=== PATIENT | female | born 1985 | race African-American/Black ===

== ENCOUNTER 2017-07-16 02:50 | Inpatient (IN) | payer OTHER ==
[~2017-07-16] VITALS: Ht 165.1 cm; Wt 159.7 kg
[~2017-07-16 02:50] MED LIST: AMITRIPTYLINE H10 M2 PO; FISH OIL 1,0001 EAC2 PO; FOLIC ACID0.8 M1 PO; IMITREX50 M1 PO; MERIBIN5 M1 PO; PROVENTIL HFA6.7 GM INH; SYMBICORT 16010.2 GM INH
--- NOTE | 2017-07-16 12:34 | Admission Core Measures ---
Acute Coronary Syndrome (CM) ACS Core Measures Acute Coronary Syndrome Diagnosis No Congestive Heart Failure (NEW) CHF Core Measures Congestive Heart Failure Diagnosis No Cerebrovascular Accident (NEW) CVA Core Measures CVA/TIA Diagnosis No Venous Thromboembolism VTE Core Kelsie (View Protocol) VTE Risk Factors Surgery No Mechanical VTE Prophylaxis d/t N/A MechProphylax Ordered No VTE Pharm Prophylaxis d/t NA PharmProphylax ordered Problem List As ranked by this Provider includes Assessment & Plan 1. S/P laparoscopic sleeve gastrectomy 2. Asthma 3. Morbid obesity HOME MEDS Home Med List Albuterol Sulfate (Proventil Hfa) 90 MCG HFA.AER.AD 2 PUF INH PRN ASTHMA ( Reported) Amitriptyline HCl 10 MG TABLET 1 TAB PO QPM SLEEP/MIGRAINES (Reported) Biotin (Meribin) (Unknown Strength) CAPSULE (Unknown Dose) PO DAILY SUPPLEMENT (Reported) Budesonide/Formoterol Fumarate (Symbicort 160-4.5 Mcg Inhaler) 160 MCG-4.5 MCG/ ACTUATION HFA.AER.AD 2 PUF INH PRN ASTHMA (Reported) Folic Acid (Unknown Strength) CAPSULE (Unknown Dose) PO DAILY SUPPLEMENT ( Reported) Water View-3/Dha/Epa/Fish Oil (Fish Oil 1,000 MG Softgel) (Unknown Strength) CAPSULE (Unknown Dose) PO DAILY SUPPLEMENT (Reported) Sumatriptan Succinate (Imitrex) 50 MG TABLET 1 TAB PO AD PRN MIGRAINES ( Reported)
--- NOTE | 2017-07-16 13:51 | Operative Report ---
Operative/Inv Procedure Report Surgery Date: 07/16/17 Name of Procedure: Laparoscopic Sleeve Gastrectomy Pre-Operative Diagnosis: Morbid Obesity BMI 59, VIMAL Post-Operative Diagnosis: Same Estimated Blood Loss: less than 50ml Surgeon/Cellular Biologist: Jag Lanza DO Anesthesia: general endotracheal tube IV Fluids: 1200 cc Drains: None Specimens: Stomach Complications: None Condition: Stable Operative Indication: This is a 31-year-old female who presented to the office for workup for bariatric surgery. After appropriate workup was completed I discussed with the patient the band, the sleeve, and the gastric bypass. The patient chose to undergo a sleeve gastrectomy. All risks including but not limited to bleeding, infection, leak, stricture, injury to surrounding bowel/esophagus/stomach/liver/ spleen, long-term reflux, DVT/PE, and mortality of 06/999 patients were discussed in detail. The patient understood everything and decided to proceed. Operative/Procedure Note Note: The patient was brought to the operating room and placed on the operating room table in supine position. Venodyne stockings were placed and adequate general endotracheal anesthesia was obtained. The patient was prepped and draped in standard surgical fashion. Began the procedure by making a 2 cm transverse incision supraumbilically and slightly to the left of the midline. Then using a 12 mm clear Visiport and a 10 mm 0 laparoscope, the abdominal cavity was accessed. Great care was taken to go through the anterior rectus sheath, the posterior rectus sheath, and through the peritoneum. Once we entered the peritoneum the abdominal cavity was insufflated to 15 mmHg. Upon initial examination no obvious gross pathology was seen. Accessory trocars were placed, 5 mm in the epigastrium for the [place] liver retractor. The retractor was inserted and the liver was retracted anteriorly exposing the hiatus, no hiatal hernia was seen. 5 mm ports were placed in the right and left upper quadrant, a 5 mm left lateral port, and a 15 mm right lateral port. Began the procedure by mobilizing the greater curvature of the stomach approximately 7 cm from the pylorus. Once the retrogastric space was reached the whole greater curvature was mobilized maintaining hemostasis using Harmonic scalpel. Full hiatal dissection was performed, no hiatal hernia was seen. Posterior adhesions were taken down using Harmonic scalpel as well. Once the stomach was adequately mobilized a 38 [place] bougie was inserted and placed along the lesser curvature of the stomach. Once the bougie was in the appropriate position we began creating our sleeve, two 60 mm black staple loads with seamguard followed by three 60 mm purple staple loads with seamguard as well. Great care was taken to leave ample room at the incisura angularis, to prevent any twisting or kinking of the sleeve, to stay lateral to the esophagogastric fat pad, and to do a full fundal excision. At the completion of the staple line the staple line was examined, it appeared intact and no obvious bleeding was noted. The bougie was removed, the sleeve was lying nicely without any twisting or kinking. The resected stomach was removed through the right lateral port site. The port and the left upper quadrant were irrigated until clear. All ports were removed under direct visualization no obvious bleeding was noted. The 15 mm port site fascia was closed using 0 Vicryl suture. The skin was closed using 4-0 Monocryl. Steri-Strips and dressings were placed. The patient was successfully extubated and transferred to the recovery room in stable condition. The patient tolerated the procedure well with no complications. Findings: No hiatal hernia, 38 Fr Bougie CC: Codey LYN,Armando
[2017-07-16 16:30] VITALS: BP 128/72
--- NOTE | 2017-07-16 17:11 | PN- Bariatrics ---
Subjective Subjective: POST-OP NOTE Reports ongoing nausea after receiving zofran, tigan, and decadron. Reportedly vomited a few times dark-bilious fluid. Shes currently sleepy, and seems comfortable. Denies dizziness. No shortness of breath. No chest pains. She has her cpap with her from home. Objective Vital Signs and I&Os pacu flowsheet reviewed. O2 sat checked while examining, which showed she is 99% on room air. due to void between 1999 and 2199 Physical Exam: General - alert & oriented. sleepy but arousable. answering questions appropriately. comfortable. Lungs - clear bilaterally. no w/r/r. Cardiac - s1s2. reg. Abdomen - obese. dressings stained but intact. no drains. expected grace- incisional tenderness. Extremities - warm bilaterally. no c/c/e. calves soft and nontender b/l. Current Medications: Current Medications Sig/Alyssa Start time Last Medication Dose Route Stop Time Status Admin Acetaminophen 1,000 MG .STK-MED ONE 07/16 0657 DC IV 07/16 0658 Albuterol Sulfate 2 PUF Q4 PRN 07/16 1230 AC INH Amitriptyline HCl 10 MG AT BEDTIME 07/16 2200 AC PO Budesonide/ 2 PUF BID 07/16 2200 AC Formoterol Fumarate INH Cefazolin Sodium 3,000 MG IQ8 07/16 2000 CAN IV 07/17 0801 Cefazolin Sodium 3,000 MG Q8H 07/16 2000 AC Sodium Chloride 100 ML IV 07/17 0429 Cefazolin Sodium 3,000 MG ONCE 07/16 0000 DC IV 07/16 2359 Dexamethasone 8 MG ONCE PRN 07/16 1630 AC IV PUSH Dextrose/Lactated 1,000 ML Q8H 07/16 1630 AC 07/16 Ringer's IV 1658 Diphenhydramine HCl 50 MG ONCE ONE 07/16 1645 CAN IV 07/16 1646 Fentanyl Citrate 100 MCG .STK-MED ONE 07/16 0657 DC IM 07/16 0658 Heparin Sodium 5,000 UNIT Q8 07/16 2200 AC (Porcine) SC Heparin Sodium 0 .STK-MED ONE 07/16 1022 DC (Porcine) .ROUTE Heparin Sodium 5,000 UNIT ONCE 07/16 0000 DC (Porcine) IV 07/16 2359 Hydrocodone Bitart/ 15 ML Q6P PRN 07/16 1630 AC Acetaminophen PO Hydromorphone HCl 1 MG Q4P PRN 07/16 1630 AC IV Midazolam HCl 2 MG .STK-MED ONE 07/16 0657 DC IM 07/16 0658 Ondansetron HCl 4 MG Q6P PRN 07/16 1630 AC IV Pantoprazole Sodium 40 MG DAILY 07/17 1000 AC IV Scopolamine HBr 0 .STK-MED ONE 07/16 1206 DC TOP Simethicone 40 MG Q6P PRN 07/16 1630 AC PO Results Last 48 Hours of Labs: Laboratory Tests 07/16 0936 Urines Urine Test NEGATIVE Assessment/Plan Assessment/Plan This 31 year old female with hx morbid obesity (bmi 59), hx greer (with cpap from home at bedside), now POD#0 s/p laparoscopic sleeve gastrectomy stage 1 diet as tolerated npo after midnight for upper gi study in am grace-operative ancef x 2 TRC ordered. spoke with respiratory therapist to assist with placing cpap pain medication as ordered due to void this evening protonix - gi ppx hep sc - dvt ppx. lovenox teaching for home anti-emetics as needed for nausea oob/ambulation when more awake d/w Core Measures Venous Thromboembolism VTE Risk Factors Surgery No Mechanical VTE Prophylaxis d/t N/A MechProphylax Ordered No VTE Pharm Prophylaxis d/t NA PharmProphylax ordered
--- NOTE | 2017-07-16 17:25 | Patient Discharge Instructions ---
Discharge Instructions General Discharge Information You were seen/treated for: Morbid Obesity (BMI 59), VIMAL You had these procedures: Surgery Date: 07/16/17 Name of Procedure: Laparoscopic Sleeve Gastrectomy Watch for these problems: fever>101.3, increased pain, redness/swelling/drainage, dizziness, shortness of breath, chest pains No bath, but you may shower: Yes Other wound care: ok to remove outer dressings. leave white steri strips in place. keep incisions clean & dry. Diet Continue normal diet: Yes Recommended Diet: Bariatric Activity Full Activity/No Limits: No Activity Self Limited: Yes Pounds, do NOT lift more than: 10 Other activity limits: no heavy lifting >10 lbs. no strenuous activity. Additional ACTIVITY Info: walk frequently Acute Coronary Syndrome Inclusion Criteria At DC or during hospital stay patient has or had the following: ACS DIAGNOSIS No Discharge Core Measures Meds if any: Prescribed or Continued at Discharge Meds if any: NOT Prescribed or Continued at Discharge Congestive Heart Failure Inclusion Criteria At DC or during hospital stay patient has or had the following: CHF DIAGNOSIS No Discharge Core Measures Meds if any: Prescribed or Continued at Discharge Meds if any: NOT Prescribed or Continued at Discharge Cerebrovascular accident Inclusion Criteria At DC or during hospital stay patient has or had the following: CVA/TIA Diagnosis No Discharge Core Measures Meds if any: Prescribed or Continued at Discharge Meds if any: NOT Prescribed or Continued at Discharge Venous thromboembolism Inclusion Criteria VTE Diagnosis No VTE Type NONE VTE Confirmed by (Test) NONE Discharge Core Measures - Per Current guidelines, there needs to be overlap - treatment for the first 5 days of Warfarin therapy. - If discharged on Warfarin prior to 5 days of - overlap therapy, the patient will need to be - assessed for post discharge needs including - *Post discharge parental anticoagulation - *Warfarin and/or parental anticoagulation education - *Follow up date to check INR post discharge At least 5 days overlap therapy as Inpatient No Meds if any: Prescribed or Continued at Discharge Note: Overlap Therapy is Warfarin and Anticoagulant Meds if any: NOT Prescribed or Continued at Discharge
[2017-07-16] MEDS ORDERED: PROTONIX40 M3 PO (17:27)
[2017-07-16] MEDS ORDERED: LOVENOX40 MG/0.1 SC (17:27)
[2017-07-16] MEDS ORDERED: HYCET 7.5 MG-3473 ML PO (17:27)
--- NOTE | 2017-07-16 17:32 | Surg Short-stay <48hrs Dis Sum ---
Visit Information Visit Dates Admission Date: 07/16/17 Discharge Date: 07/18/17 Surgical Short Stay DC Summary Admission Diagnosis: morbid obesity (BMI 59), VIMAL Final Diagnosis: same as above, s/p Surgery Date: 07/16/17 Name of Procedure: Laparoscopic Sleeve Gastrectomy Procedure(s): Surgery Date: 07/16/17 Name of Procedure: Laparoscopic Sleeve Gastrectomy Summary/Significant Findings: Electively scheduled laparoscopic sleeve gastrectomy on 07/16/17 by , for history of morbid obesity (BMI 59), and VIMAL. She was started on a stage 1 bariatric diet post-operatively, and initially required several medications for post-op nausea/vomiting. An upper gi study was done POD#1 to rule out leak and obstruction. She brought her cpap machine from home for continued maintenance of her known sleep apnea. Lovenox teaching was done prior to her discharge to home, to continue for one week at home. Condition at Discharge: stable Discharge Disposition: home or self care Discharge instructions provided to patient/family: Yes Post discharge follow-up plan: one week follow up with continue lovenox injections as directed Copies to: Codey LYN,Armando
[2017-07-16 20:00] VITALS: BP 130/70
[2017-07-17 06:33] VITALS: BP 148/74
--- NOTE | 2017-07-17 07:34 | PN- Bariatrics ---
See Addendum Subjective Subjective: Pt. had nausea over night and emesis last evening , treated with anti emetics and good response. She states her nausea is getting better. Had clears last night. Ambulated last night. Objective Vital Signs and I&Os Vital Signs Date Time Temp Pulse Resp B/P B/P Pulse O2 O2 Flow FiO2 Mean Ox Delivery Rate 07/17 0633 98.3 97 19 148/74 96 07/17 0600 98 Nasal 1.5L Cannula 07/17 0000 Nasal 1.5L Cannula 07/16 2200 98 Nasal 1.5L Cannula 07/16 1999 97.9 95 19 130/70 99 Nasal 1.5L Cannula 07/16 1830 99 Room Air 07/16 1630 97 Room Air 07/16 1630 97.6 75 18 128/72 97 Room Air Intake & Output 07/17 0800 07/17 0000 07/16 1600 07/16 0800 07/16 0000 07/15 1600 Intake Total 905 975 Output Total 300 250 Balance 605 725 Intake, IV 875 875 Intake, Oral 30 100 Number 0 0 Bowel Movements Output, Urine 300 250 Patient 352 lb Weight Alert, appropriate, looks non toxic, comfortable. Lungs are clear Herat , regular Abdomen is obese, soft. Port sites with dressings over with old blood stain, no active bleeding. Extremities warm, perfused. Assessment/Plan Assessment/Plan s/p lap. Gastric sleeve POD#1 for morbid obesity. Stable hemodynamics. Abdominal exam benign/ appropriate. Nausea seems to be improving. Pt. awaiting UGI this morning. Diet will be advanced once results available.Hep lock IVF once taking adequate amounts of fluids. I discussed importance of increasing ambulation. Incisional sites withgout signs of infection. Cont. PO prn meds. for pain. On chemical DVT prophylaxis with Heparin sc. Lovanox shots teaching for discharge( pt. already has scripts given by surgeon) . I anticipate d/ clater this afternoon or tomorrow depending on nausea resolution and diet tolerance. Will follow blood work results. Core Measures Venous Thromboembolism VTE Risk Factors Surgery No Mechanical VTE Prophylaxis d/t N/A MechProphylax Ordered No VTE Pharm Prophylaxis d/t NA PharmProphylax ordered
[2017-07-17 08:26] LABS: ABSOLUTE BASOPHIL COUNT 0 /CUMM (0.0-0.2); ABSOLUTE EOSINOPHIL COUNT 0 /CUMM (0.0-0.7); ABSOLUTE LYMPH COUNT 1.2 /CUMM (1.2-3.4); ABSOLUTE MONOCYTE COUNT 0.4 /CUMM (0.10-0.60); BASOPHIL % 0 % (0.0-2.0); EOSINOPHIL % 0 % (0-5); HEMATOCRIT 32.5 % (37-47); MEAN CORPUSCULAR HGB 24.9 PG (27.0-31.0); MEAN CORPUSCULAR HGB CONC 32.5 G/DL (33.0-37.0); MEAN CORPUSCULAR VOLUME 76.6 FL (81.0-99.0); MEAN PLATELET VOLUME 8.7 FL (7.4-10.4); PLATELET COUNT 361 /CUMM (130-400); RED BLOOD CELL CT 4.25 /CUMM (4.20-5.40); WHITE BLOOD CELL COUNT 11.6 /CUMM (4.8-10.8)
[2017-07-17 09:15] LABS: GRANULOCYTE % 86.1 % (42.2-75.2)
--- NOTE | 2017-07-17 11:21 | RADIOLOGY REPORT ---
EXAMINATION: FL UPPER GI SERIES CLINICAL INFORMATION: Status post sleeve gastrectomy. COMPARISON: None TECHNIQUE: A single contrast upper GI series with fluoroscopy and spot imaging was performed. The patient ingested 30 mL of Gastroview contrast material without difficulty and was evaluated in the upright and recumbent positions. FLUOROSCOPY TIME: 28 seconds NUMBER OF IMAGES: 9 images FINDINGS: After oral intake of 30 mL of Gastroview contrast material, there was no delay in passage of contrast through the esophagus and into the stomach, which had the expected configuration after sleeve gastrectomy. No significant delay in passage of contrast into the normal duodenum. No evidence of a fixed filling defect, mucosal thickening, upper gastrointestinal tract obstruction or contrast leakage. IMPRESSION: Status post sleeve gastrectomy without evidence of postoperative complication.
[2017-07-17 14:46] VITALS: BP 136/84
[2017-07-17 22:21] VITALS: BP 140/90
[2017-07-18 06:59] VITALS: BP 138/84
--- NOTE | 2017-07-18 07:09 | PN- Bariatrics ---
Subjective Subjective: Tolerating stage 1 diet. No nausea. Passing flatus and +bm. Ambulating without difficulty. No dizziness. No shortness of breath. No chest pains. Understands lovenox injections. Voiding well. Objective Vital Signs and I&Os Vital Signs Date Time Temp Pulse Resp B/P B/P Pulse O2 O2 Flow FiO2 Mean Ox Delivery Rate 07/18 0659 98.2 74 20 138/84 92 07/18 0600 97 Room Air 07/17 2221 99.1 81 20 140/90 99 Room Air 07/17 2200 Room Air 07/17 1446 99.1 83 20 136/84 95 Room Air 07/17 1400 93 Room Air 07/17 1020 Nasal 1.5L Cannula 07/17 0800 93 Room Air 07/17 0749 20 93 Room Air Intake & Output 07/18 0800 07/18 0000 07/17 1600 07/17 0800 07/17 0000 07/16 1600 Intake Total 1120 1200 1075 905 975 Output Total 100 750 300 250 Balance 1120 1100 325 605 725 Intake, IV 1000 1000 1000 875 875 Intake, Oral 120 200 75 30 100 Number 1 2 1 0 0 Bowel Movements Output, 100 Emesis Output, Urine 750 300 250 Patient 352 lb Weight Physical Exam: General - alert & oriented x 3. comfortable. no acute distress. Lungs - clear bilaterally. no w/r/r. Cardiac - s1s2. reg. Abdomen - dressings intact. no drains. expected grace-incisional tenderness. Extremities - warm bilaterally. no c/c/e. calves soft and nontender b/l. Current Medications: Current Medications Sig/Alyssa Start time Last Medication Dose Route Stop Time Status Admin Albuterol Sulfate 2 PUF Q4 PRN 07/16 1230 AC INH Amitriptyline HCl 10 MG AT BEDTIME 07/160 AC 07/17 PO 210 Budesonide/ 2 PUF BID 07/16 2199 AC 07/17 Formoterol Fumarate INH 2106 Dexamethasone 8 MG ONCE PRN 07/16 1630 AC 07/16 IV PUSH 2010 Dextrose/Lactated 1,000 ML Q8H 07/16 1630 AC 07/18 Ringer's IV 0444 Heparin Sodium 5,000 UNIT Q8 07/16 2199 AC 07/18 (Porcine) SC 0438 Hydrocodone Bitart/ 15 ML Q6P PRN 07/16 1630 DC 07/17 Acetaminophen PO 2105 Hydromorphone HCl 1 MG Q4P PRN 07/16 1630 AC 07/17 IV 2114 Ketorolac 15 MG Q8 07/17 2200 AC 07/18 Tromethamine IV 07/19 2159 0438 Ondansetron HCl 4 MG Q6P PRN 07/16 1630 AC 07/17 IV 1137 Oxycodone/ 1 TAB Q4-6 PRN PRN 07/18 0715 UNVr Acetaminophen PO Oxycodone/ 2 TAB Q4-6 PRN PRN 07/18 0715 AC Acetaminophen PO Pantoprazole Sodium 40 MG DAILY 07/17 1000 AC 07/17 IV 0854 Simethicone 40 MG Q6P PRN 07/16 1630 AC PO Results Last 48 Hours of Labs: Laboratory Tests 07/17 07/16 0655 0936 Chemistry Sodium (137 - 145 mmol/L) 141 Potassium (3.5 - 5.1 mmol/L) 4.1 Chloride (98 - 107 mmol/L) 105 Carbon Dioxide (22 - 30 mmol/L) 24 Anion Gap (5 - 16) 12 BUN (7 - 17 mg/dL) 5 L Creatinine (0.5 - 1.0 mg/dL) 0.8 Estimated GFR (>60 ml/min) > 60 BUN/Creatinine Ratio (7 - 25 %) 6.3 L Glucose (65 - 99 mg/dL) 141 H Magnesium (1.6 - 2.3 mg/dL) 2.0 Hematology CBC w Diff NO MAN DIFF REQ WBC (4.8 - 10.8 /CUMM) 11.6 H RBC (4.20 - 5.40 /CUMM) 4.25 Hgb (12.0 - 16.0 G/DL) 10.6 L Hct (37 - 47 %) 32.5 L MCV (81.0 - 99.0 FL) 76.6 L MCH (27.0 - 31.0 PG) 24.9 L MCHC (33.0 - 37.0 G/DL) 32.5 L RDW (11.5 - 14.5 %) 17.0 H Plt Count (130 - 400 /CUMM) 361 MPV (7.4 - 10.4 FL) 8.7 Gran % (42.2 - 75.2 %) 86.1 H Lymphocytes % (20.5 - 51.1 %) 10.6 L Monocytes % (1.7 - 9.3 %) 3.3 Eosinophils % (0 - 5 %) 0 Basophils % (0.0 - 2.0 %) 0 Absolute Granulocytes (1.4 - 6.5 /CUMM) 10.0 H Absolute Lymphocytes (1.2 - 3.4 /CUMM) 1.2 Absolute Monocytes (0.10 - 0.60 /CUMM) 0.4 Absolute Eosinophils (0.0 - 0.7 /CUMM) 0 Absolute Basophils (0.0 - 0.2 /CUMM) 0 Urines Urine Test NEGATIVE Assessment/Plan Assessment/Plan This 31 year old female with hx morbid obesity (bmi 59), hx greer (with cpap from home at bedside), now POD#2 s/p laparoscopic sleeve gastrectomy tolerating stage 2 diet would prefer to try percocet for pain rather than hycet lovenox teaching done continue protonix - gi ppx oob/ambulation encouraged cpap for greer d/c home today will d/w Core Measures Venous Thromboembolism VTE Risk Factors Surgery No Mechanical VTE Prophylaxis d/t N/A MechProphylax Ordered No VTE Pharm Prophylaxis d/t NA PharmProphylax ordered
[2017-07-18] MEDS ORDERED: PERCOCET 5-3251 EACH PO (07:15)
[2017-07-18] MEDS ORDERED: PROTONIX40 M3 PO (07:15)
== END 2017-07-18 10:26 | DRG 403 ==
LOC: 2NB 02:50 → SDA 02:50 → ENRESERV 14:50 → ENTRNSPT 15:45 → EDTRNSPTSTS 15:51 → 2NB 16:04 → CMPTRNSPT 16:34 → ENPENDDIS 07-18 08:09 → 2NB 07-18 10:26
PROVIDERS: Physician Assistant
PROC: 0DB64Z3 Excision of Stomach, Percutaneous Endoscopic Approach, Vertical (ICD-10-PCS; principal; 2017-07-16)
PROC: 3E0T3BZ Introduction of Anesthetic Agent into Peripheral Nerves and Plexi, Percutaneous Approach (ICD-10-PCS; 2017-07-16)
DX: E66.01 Morbid (severe) obesity due to excess calories (principal); J45.909 Unspecified asthma, uncomplicated; Z68.43 Body mass index [BMI] 50.0-59.9, adult; G47.33 Obstructive sleep apnea (adult) (pediatric)
CPT/HCPCS: 2NBP; 36415; 74240; 81025; 82436; C9399; J0131; J0690; J1100; J1200; J1644; J2405; J2550; J3250; J3490